=== PATIENT | female | born 1980 | race Caucasian/White ===

== ENCOUNTER 2022-04-06 13:00 | Outpatient (RCR) | payer BC ==
[2022-03-19 15:12] VITALS: BP 138/97; PULSE 89
--- NOTE | 2022-03-19 15:15 | NUR ---
Pt ready for departure. Pt did develop a cough and feeling of upper chest congestion with burning sensation in upper chest with cough and respirations. Rate of infusion was slowed to 175ml/hr and sx improved after a few minutes. Pt denied any SOB, and vitals remained stable; o2 sat, hr and resp rate did not change. At time of departure. pt is eupnic, with clear lung sounds. amb with brisk gait to exit.
--- NOTE | 2022-03-26 13:45 | NUR ---
pt had chest discomfort and anxiety with last infusion of solumedrol, per pt report. Pt wants infusion to be run slower this visit. 150ml/hr is tolerable for pt.
[2022-03-26 14:15] VITALS: BP 128/85; PULSE 89; TEMP 98.9
[~2022-04-06] VITALS: Ht 167.6 cm; Wt 111.5 kg
[~2022-04-06 13:00] MED LIST: APLENZIN348 MG PO; FLAXSEED OIL1000 MG PO; HAIRSKINNAILS PO; NORVASC 5MG5 MG/TAB PO; RESVERATROL250 MG PO; SELENIUM200 MC5 PO; TAPAZOLE10 MG PO; VYVANSE50 MG PO
[2022-04-06 13:30] VITALS: BP 143/91; PULSE 74; TEMP 98.7
[2022-04-20] MEDS ORDERED: SOLU-MEDR500 IV (13:37)
== END 2022-04-09 | disposition home or self-care (01) ==
LOC: EUO
DX: E05.00 Thyrotoxicosis with diffuse goiter without thyrotoxic crisis or storm (principal)
CPT/HCPCS: J2930; J7050

== ENCOUNTER 2022-05-04 13:00 | Outpatient (RCR) | payer BC ==
[2022-04-14 13:44] VITALS: BP 120/81; PULSE 90; TEMP 99.2
[2022-04-20 13:32] VITALS: BP 135/85; PULSE 92; TEMP 98.2
[2022-04-27 13:23] VITALS: BP 130/84; PULSE 91; TEMP 98
[~2022-05-04] VITALS: Ht 167.6 cm; Wt 110.7 kg
[~2022-05-04 13:00] MED LIST changes: +SOLU-MEDR500 IV
[2022-05-04 13:51] VITALS: BP 134/85; PULSE 88; TEMP 98.5
[2022-05-04 13:53] VITALS: BP 134/85; PULSE 88; TEMP 98.5
== END 2022-05-10 | disposition home or self-care (01) ==
LOC: EUO
DX: E05.00 Thyrotoxicosis with diffuse goiter without thyrotoxic crisis or storm (principal); Z79.899 Other long term (current) drug therapy
CPT/HCPCS: J2930; J7050

== ENCOUNTER 2022-06-10 11:30 | Outpatient (RCR) | payer BC ==
[2022-05-11 13:56] VITALS: BP 129/86; PULSE 90; TEMP 98.8
[2022-05-20 13:53] VITALS: BP 131/90; PULSE 78; TEMP 99.2
[2022-05-27 13:40] VITALS: BP 142/92; PULSE 86; TEMP 97.9
[2022-06-03 14:00] VITALS: BP 126/78; PULSE 87; TEMP 98
[~2022-06-10] VITALS: Ht 167.6 cm; Wt 108.4 kg
[2022-06-10 11:57] VITALS: BP 120/80; PULSE 88; TEMP 98.4
== END 2022-06-10 13:37 | disposition home or self-care (01) ==
LOC: EUO 11:30
DX: E05.00 Thyrotoxicosis with diffuse goiter without thyrotoxic crisis or storm (principal)
CPT/HCPCS: J2930

== ENCOUNTER 2023-10-28 11:42 | Day surgery (SDC) | payer BC ==
[~2023-10-28] VITALS: Ht 167.6 cm; Wt 117.0 kg
[2023-10-28] VITALS (9 sets, daily range): BP systolic 123–134; BP diastolic 66–88; PULSE 48–64; TEMP 97.8–98.6
[2023-10-28] MEDS ORDERED: LR 1,000 ML IV SCH ×2 (11:45→15:30)
[2023-10-28] MEDS ORDERED: WELLBUTRIN XL300 M1 PO (12:22)
[2023-10-28] MEDS ORDERED: TOPROL XL 50MG50 MG PO (12:23)
[2023-10-28] MEDS ORDERED: fentaNYL 50 MCG/ML 5 ML VIAL ONE ×2 (12:52)
[2023-10-28] MEDS ORDERED: Rocuronium 50 MG/5 ML Multi-Dose VIAL ONE ×2 (12:52→14:02)
[2023-10-28] MEDS ORDERED: Scopolamine 1 MG Delivered 3-Day PATCH TD SCH (12:52)
[2023-10-28] MEDS ORDERED: NS 10 ML IV ONE (12:57)
[2023-10-28] MEDS ORDERED: Ondansetron 4 MG/2 ML VIAL ONE ×2 (13:04→14:31)
[2023-10-28] MEDS ORDERED: dexAMETHasone 10 MG/ML VIAL ONE (13:04)
[2023-10-28] MEDS ORDERED: fentaNYL 50 MCG/ML 2 ML VIAL IV PRN (14:15)
[2023-10-28] MEDS ORDERED: Meperidine 50 MG/ML 1 ML VIAL IV PRN (14:15)
[2023-10-28] MEDS ORDERED: hydrALAZINE 20 MG/ML 1 ML VIAL IV PRN (14:15)
[2023-10-28] MEDS ORDERED: droPERidol 2.5 MG/ML 2 ML VIAL IV PRN (14:15)
[2023-10-28] MEDS ORDERED: HYDROmorphone 2 MG/1 ML VIAL IV PRN (14:15)
[2023-10-28] MEDS ORDERED: LR 1,000 ML IV ONE (14:17)
[2023-10-28] MEDS ORDERED: fentaNYL 50 MCG/ML 2 ML VIAL ONE ×2 (14:29→15:24)
[2023-10-28] MEDS ORDERED: Topical Skin Adhesive 1 EACH (1 ML) TOP ONE ×2 (14:30)
[2023-10-28] MEDS ORDERED: Ketorolac 60 MG/2 ML VIAL IM ONE (14:31)
[2023-10-28] MEDS ORDERED: Glycopyrrolate 0.2 MG/ML 1 ML VIAL ONE (14:32)
[2023-10-28] MEDS ORDERED: Neostigmine 1 MG/ML 10 ML Multi-Dose Vial ONE (14:32)
[2023-10-28] MEDS ORDERED: Acetaminophen 500 MG TAB PO PRN (15:30)
[2023-10-28] MEDS ORDERED: oxyCODONE 5 MG TAB PO PRN (15:30)
[2023-10-28] MEDS ORDERED: Ondansetron 4 MG/2 ML VIAL IV PRN (15:30)
[2023-10-28] MEDS ORDERED: Naloxone 0.4 MG/ML VIAL IV PRN (15:30)
[2023-10-28] MEDS ORDERED: Hyoscyamine 0.125 MG Sublingual TAB SL ONE ×2 (16:20→16:30)
--- NOTE | 2023-10-28 17:00 | NUR ---
PT TRANSFERED TO OB UNIT FROM SURGICAL, THIS RN RECEIVES REPORT. PT ORIENTED TO ROOM AND PLAN OF CARE, SCD'S STARTED, MCLAIN CATH CHECKED AND CLEAR, PT VS STABLE, ALERT AND ORIENTED BUT SLIGHTLY LETHARGIC DURING RESPONSE. PT MOM SUPPORTIVE AT BEDSIDE.
--- NOTE | 2023-10-28 17:30 | NUR ---
O2 SAT READING 90%, PULSE OX NOT ADEQUATELY ON FINGER- POSSIBLY INACCURATE READING, PT ALERT AND ORIENTED OBSERVED PER THIS RN
--- NOTE | 2023-10-28 17:30 | NUR ---
D/C NASAL CANNULA O2 AT 3L, PT TITRATED OFF AND ABLE TO MAINTAIN O2 >94% ON ROOM AIR. PT VS STABLE AND ALERT AND ORIENTED.
--- NOTE | 2023-10-28 17:45 | NUR ---
UNABLE TO TRACE PT BLOOD PRESSURE AND O2 SAT DUE TO PT POSITION AND HABITUS. PT OBSERVED MOVING FREQUENTLY AND EDUCATED TO TRY TO STAY STILL WHILE BLOOD PRESSURE CUFF IS INFLATING.
--- NOTE | 2023-10-28 18:00 | NUR ---
UNABLE TO TRACE BLOOD PRESSURE AND O2 DUE TO PT POSITION AND HABITUS. PT EDUCATED TO STAY STILL WHILE BLOOD PRESSURE CUFF IS INFLATING.
--- NOTE | 2023-10-28 20:15 | NUR ---
2014 C/O FEELING URGE TO VOID WITH CATHETER IN. NO C/O PAIN FROM INCS. INC C,D&I X4. OXYCODONE X1 PO FOR COMPLAINT. 2100 SCHEDULED MOTRIN GIVEN. STATES IS FEELING LESS URGE TO VOID WITH CATHETER IN. CATH DRAINING WELL. UP TO BR WITH ASSIST FOR BRENDA CARE AND TO SINK FOR ORAL CARE. RODRÍGUEZ WELL. RETURNED TO BED. SCDS ON. LIGHTS OUT TO SLEEP
[2023-10-28] MEDS ORDERED: Docusate Sodium 100 MG CAP PO SCH (21:00)
[2023-10-28] MEDS ORDERED: Ibuprofen 800 MG TAB PO SCH (21:23)
[2023-10-29] MEDS ORDERED: TETRAHYDROZOLINE 0.05% OP PRN (00:15)
[2023-10-29 04:00] VITALS: BP 118/69; PULSE 58; TEMP 98.8
--- NOTE | 2023-10-29 04:15 | NUR ---
0415 C/O IV REALLY HURTING. DCD. UP TO BR AND MCLAIN CATH DCD. PERICARE DONE. SCANT VAG DISCHARGE NOTED. RETURNED TO BED. OXYCODONE AND MOTRIN GIVEN.
[2023-10-29 07:12] VITALS: BP 120/59; PULSE 72; TEMP 99.2
== END 2023-10-29 13:10 | disposition home or self-care (01) ==
LOC: SDCO 11:42 → OB 18:43 → SDCO 10-29 13:10
PROVIDERS: Obstetrics & Gynecology
DX: D25.2 Subserosal leiomyoma of uterus (principal); N92.0 Excessive and frequent menstruation with regular cycle; K66.0 Peritoneal adhesions (postprocedural) (postinfection); N83.292 Other ovarian cyst, left side; N83.291 Other ovarian cyst, right side; R23.4 Changes in skin texture; Z87.891 Personal history of nicotine dependence
CPT/HCPCS: OP; A4314; J0690; J1100; J1885; J2405; J2704; J2710; J3010; J7120